=== PATIENT | female | born 1975 | race Caucasian/White ===

== ENCOUNTER → 2019-06-22 | Outpatient (CLI) | payer BC ==
[~2019-06-22] MED LIST: DHA PO; FOLIC ACID1 MG PO; LEXAPRO10 MG PO; MOTRIN 600600 MG/TAB PO; PERCOCET 325 MG1 TA2 PO; PRENATAL1 TA4 PO; RESTASIS 0.4 M0.4 ML OU; TYLENOL 325MG325 MG PO
== END ==
LOC: MC.RAD 11:13
DX: Z12.31 Encounter for screening mammogram for malignant neoplasm of breast (principal); N63.10 Unspecified lump in the right breast, unspecified quadrant

== ENCOUNTER → 2019-06-25 | Outpatient (CLI) | payer BC | LOC: MC.RAD 09:35 | DX: N60.01 Solitary cyst of right breast (principal); N63.10 Unspecified lump in the right breast, unspecified quadrant | CPT/HCPCS: G0279 ==

== ENCOUNTER → 2020-10-04 | Outpatient (CLI) | payer BC | LOC: MC.RAD 14:45 | DX: Z12.31 Encounter for screening mammogram for malignant neoplasm of breast (principal) ==

== ENCOUNTER 2021-05-30 09:58 | Emergency (ER) | payer OTHER ==
[~2021-05-30] VITALS: Ht 175.3 cm; Wt 68.2 kg
[2021-05-30] MEDS ORDERED: ADDERALL XR30 MG PO (10:14)
[2021-05-30] MEDS ORDERED: PROZAC 20MG20 MG PO (10:14)
[2021-05-30] MEDS ORDERED: MACROBID 1100 MG/CAP PO (10:16)
[2021-05-30 10:31] LABS: BASO % 0.6 % (0.0-2.0); EOS # 0.3 K/mm3 (0.0-0.7); EOS % 4.1 % (0-4.0); GRAN # 4.6 K/mm3 (1.4-6.5); GRAN % 69.7 % (42.2-75.2); HEMATOCRIT 41.1 % (37.0-47.0); HEMOGLOBIN 14.2 g/dl (12.5-16.0); LYMPH # 1.2 K/mm3 (1.2-3.4); LYMPH % 18.4 % (20.0-51.0); MEAN CELL VOLUME 100 fl (80.0-100.0); MEAN CORPUSCULAR HEMOGLOBIN 35 pg (27.0-31.0); MEAN CORPUSCULAR HGB CONC 35 g/dl (33.0-37.0); MEAN PLATELET VOLUME 9.4 fl (7.4-10.4); MONO # 0.5 K/mm3 (0.1-0.6); PLATELET COUNT 242 K/mm3 (130-400); REDCELL DISTRIBUTION WIDTH-CV 12.5 % (11.5-14.5)
[2021-05-30 10:41] LABS: INR 0.9 (0.8-3.0); PARTIAL THROMBOPLASTIN TIME 29.1 SECONDS (26.0-37.0); PROTHROMBIN TIME 10.4 SECONDS (9.7-12.8)
[2021-05-30 11:04] LABS: ALANINE AMINOTRANSFERASE 35 U/L (0-55); ALBUMIN 3.7 gm/dL (3.5-5.0); ALKALINE PHOSPHATASE 62 U/L (0-750); ANION GAP 7 mmol/L (7-16); AST,SGOT 32 U/L (5-34); BILIRUBIN,TOTAL 0.5 mg/dL (0.2-1.2); BLOOD UREA NITROGEN 11 mg/dL (7-19); CALCIUM 8.7 mg/dL (8.4-10.2); CARBON DIOXIDE 23 mmol/L (22-29); CHLORIDE 107 mmol/L (98-107); CREATININE, serum 0.86 mg/dL (0.57-1.11); GLUCOSE 110 mg/dL (70-99); SODIUM 137 mmol/L (136-145); TOTAL PROTEIN 6.6 gm/dL (6.2-8.1)
[2021-05-30 11:14] LABS: TROPONIN-I < 0.010 ng/mL (0.00-0.033)
[2021-05-30] MEDS ORDERED: PREDNISONE20 MG PO (11:33)
[2021-05-30 11:50] VITALS: BP 114/75; PULSE 80
== END 2021-05-30 11:52 | disposition home or self-care (01) ==
LOC: COL.ER 09:58
PROVIDERS: Family Medicine
DX: R09.1 Pleurisy (principal); R07.89 Other chest pain
CPT/HCPCS: J1885

== ENCOUNTER 2021-11-23 08:26 | Day surgery (SDC) | payer BC ==
[~2021-11-23] VITALS: Ht 175.3 cm; Wt 69.4 kg
[~2021-11-23 08:26] MED LIST changes: +ADDERALL XR30 MG PO; +MACROBID 1100 MG/CAP PO; +PREDNISONE20 MG PO; +PROZAC 20MG20 MG PO
[2021-11-23] MEDS ORDERED: CHANTIX 1MG1 MG PO (08:59)
[2021-11-23] MEDS ORDERED: VIVLODEX10 MG PO (08:59)
[2021-11-23 09:25] VITALS: BP 103/72; PULSE 66; TEMP 97.7
[2021-11-23 10:43] VITALS: BP 101/69; PULSE 63; TEMP 97.3
[2021-11-23 10:57] VITALS: BP 101/65; PULSE 66
[2021-11-23 11:12] VITALS: BP 103/70; PULSE 65
--- NOTE | 2021-11-23 11:50 | NUR ---
1043 Pt returns from endo procedure via cart and RN assist to [facility]. Pt ambulates from cart to recliner with RN assist. Monitors on and alarms set. Call light within reach. Report received from [facility]. Pt alert and oriented. Pt requests water, coffee, and muffin. Pt denies any pain or nausea. 1100 Pt taking food and drink well. No complications noted. 1145 Discharge instructions given to pt. All questions answered to her satisfaction. Handed to pt are a thank you card and discharge information. 1150 Pt transferred out of the hospital via wheelchair and [facility] assist, to private vehicle driven by friend.
== END 2021-11-23 11:50 | disposition home or self-care (01) ==
LOC: SDCO 08:26
DX: Z12.11 Encounter for screening for malignant neoplasm of colon (principal); D12.5 Benign neoplasm of sigmoid colon; K62.89 Other specified diseases of anus and rectum; Z87.891 Personal history of nicotine dependence
CPT/HCPCS: J2704; J7120

== ENCOUNTER → 2021-12-06 | Outpatient (CLI) | payer BC ==
[~2021-12-06] MED LIST changes: +CHANTIX 1MG1 MG PO; +VIVLODEX10 MG PO
== END ==
LOC: MC.RAD 10:15
DX: Z12.31 Encounter for screening mammogram for malignant neoplasm of breast (principal)